=== PATIENT | male | born 1965 | race Caucasian/White ===

== ENCOUNTER 2024-01-13 10:48 | Emergency (ER) | payer OTHER, SELFPAY ==
--- NOTE | 2024-01-13 10:52 | ED_ITS ---
HPI - General Adult General Chief complaint: Upper Respiratory Infection Stated complaint: SINUS INFECTION Time Seen by Provider: 01/13/24 10:52 Source: patient Mode of arrival: ambulatory Limitations: no limitations History of Present Illness HPI narrative: 58-year-old male patient presents to the [facility] with complaints of sinusitis symptoms. Patient states he has had a lot of facial pain, ears cough, nasal congestion. Patient states he has had a headache and feel like his head is hot but denies fevers, body aches or chills. Denies any coughing, chest pain shortness of breath. Denies any abdominal pain, nausea, vomiting or diarrhea. Patient states he has been using some [id number] Flonase and took 1 sinus pill yesterday. Related Data Home Medications Medication Instructions Recorded Confirmed krill oil 500 mg capsule mg PO 01/13/24 Allergies Allergy/AdvReac Type Severity Reaction Status Date / Time No Known Allergies Allergy Verified 01/13/24 11:02 Review of Systems Review of Systems: CONSTITUTIONAL: Denies fever, chills, or sweats. EYES: Denies visual changes, redness, or discharge. ENT: Denies rhinorrhea, Positive congestion, denies sore throat, positive bilateral otalgia. CARDIOVASCULAR: Denies chest pain, palpitations, or edema. RESPIRATORY: Denies cough or dyspnea. GASTROINTESTINAL: Denies abdominal pain, nausea, vomiting, or diarrhea. GENITOURINARY: Denies dysuria or hematuria. SKIN: Denies rash or itching. MUSCULOSKELETAL: Denies back pain, joint pain, or myalgia. NEUROLOGIC: positive headache, denies numbness, or weakness. PSYCHIATRIC: Denies anxiety or depression. PMFSH Comments At the time of my signature I agree with nursing past medical history, surgical, social, and family history. There is no relevant family history pertinent to the presenting complaint. Exam Narrative: GENERAL: Well-appearing, well-nourished, and in no acute distress. HEAD: Normocephalic, atraumatic. EYES: PERRLA and EOMI. ENT: Nares with erythema edema noted bilaterally, no rhinorrhea or epistaxis. Mucous membranes moist. posterior pharynx with postnasal drip noted no tonsillar enlargement, exudates or lesions present. NECK: Supple. No lymphadenopathy CHEST: Clear to auscultation. No respiratory distress. HEART: Regular rate and rhythm. No murmur heard. Normal peripheral pulses. ABDOMEN: Soft, nontender, nondistended, normal active bowel sounds. EXTREMITIES: Normal range of motion. No edema. SKIN: Warm, dry, no rash. NEURO: No focal deficits. Alert and oriented x3. Course Course Level of Care: Express Care Visit Vital Signs Vital signs: Vital Signs Temperature 36.6 C 01/13/24 11:01 Pulse Rate 60 01/13/24 11:01 Respiratory Rate 18 01/13/24 11:01 Blood Pressure 132/80 01/13/24 11:01 Pulse Oximetry 96 01/13/24 11:01 Oxygen Delivery Room Air 01/13/24 11:01 Temperature 36.6 C 01/13/24 11:02 Pulse Rate 60 01/13/24 11:02 Respiratory Rate 18 01/13/24 11:02 Blood Pressure 132/80 01/13/24 11:02 Pulse Oximetry 96 01/13/24 11:02 Oxygen Delivery Room Air 01/13/24 11:02 vital signs reviewed. The patient has been informed that they may have pre-hypertension or Hypertension based on a BP reading in the department. I recommend that the patient call the primary care provider listed on their discharge instructions or a physician of their choice this week to arrange follow up for further evaluation of possible pre-hypertension or Hypertension Medical Decision Making MDM Narrative Medical decision making narrative: Plan of care patient is discharged home with oral steroids to help the acute sinusitis symptoms. Encouraged patient continue with [id number] antihistamines and Flonase as well. Patient verbalized understanding denies any other questions or concerns at this time. Differential Diagnosis Differential Diagnosis: Differential diagnosis: Allergic rhinitis, chronic sinusitis, tonsillitis, acute sinusitis, infectious mononucleosis, seasonal influenza, pertussis, diphtheria, meningococcal disease, viral syndrome, viral bronchitis, RSV, COVID- 19 Vital Signs Vital Signs: Vital Signs Temperature 36.6 C 01/13/24 11:01 Pulse Rate 60 01/13/24 11:01 Respiratory Rate 18 01/13/24 11:01 Blood Pressure 132/80 01/13/24 11:01 Pulse Oximetry 96 01/13/24 11:01 Oxygen Delivery Room Air 01/13/24 11:01 Temperature 36.6 C 01/13/24 11:02 Pulse Rate 60 11/10/24 11:02 Respiratory Rate 18 01/13/24 11:02 Blood Pressure 132/80 01/13/24 11:02 Pulse Oximetry 96 01/13/24 11:02 Oxygen Delivery Room Air 01/13/24 11:02 Critical Care Time Critical Care Time Critical Care Time: No Discharge Plan Discharge Clinical Impression: Acute viral sinusitis Patient Disposition: Home, Self-Care Condition: Stable Instructions: Antibiotic Form, Rhinosinusitis (ED) Additional Instructions: Viral illness may last between 7-12days; antibiotic is NOT recommended at this time. Recommend antihistamine such as Benadryl at night time and Claritin/Zyrtec/Graciela during the day Also, recommend symptomatic treatment includes: rest, fluids, and increase humidity of the air at home. Recommend Acetaminophen or nonsteroidal anti-inflammatory agents (NSAIDs) as directed in the bottle to reduce fever and/pain/headache. Avoid smoking/second-hand smoke. Limit visits to areas with large crowds. Please schedule a follow-up visit with your personal physician for further evaluation and treatment within 3-5days. Including recheck and discussion of your blood pressure. If your symptoms persist, change or worsen significantly before you can contact your personal physician then please, without delay, go to the emergency department for further evaluation. Prescriptions: New prednisone 20 mg tablet 20 mg PO DAILY 5 Days Qty: 5 0RF No Action krill oil 500 mg Capsule PO Follow-up/Referrals: UNKNOWN,DOCTOR [Non-Staff] - Time of Disposition: 11:16
[2024-01-13 11:01] VITALS: BP 132/80; PULSE 60; RESP 18; TEMP 36.6; O2SAT 96
[2024-01-13 11:02] VITALS: BP 132/80; PULSE 60; RESP 18; TEMP 36.6; O2SAT 96
== END 2024-01-13 11:21 | disposition home or self-care (01) ==
PROVIDERS: Emergency Provider Nurse Practitioner Family; PCP Family Medicine
DX: J01.90 Acute sinusitis, unspecified (principal); E78.00 Pure hypercholesterolemia, unspecified
CPT/HCPCS: 99203; G0463